=== PATIENT | male | born 1960 | race Caucasian/White ===

== ENCOUNTER → 2019-02-20 11:53 | Outpatient (CLI) | payer OTHER, SELFPAY ==
--- NOTE | 2019-02-20 11:56 | DI.RAD.S_ITS ---
PROCEDURE: XR RIBS RT MIN 3V W CXR 1V INDICATIONS: right rib pain TECHNIQUE: 2 views of the inferior right ribs were acquired, along with a single view chest. COMPARISON: None. FINDINGS: Surgical changes and devices: None. Bones and chest wall: There appears to be a subtle fracture involving the lateral aspect of the right 11th rib. No definite additional fractures are appreciated. No suspicious bony lesions. Overlying soft tissues appear unremarkable. Lungs and pleura: Interstitial prominence within the bilateral infrahilar regions are present. No focal consolidation, effusion, or pneumothorax is evident. There is likely scarring within the lung apices. Mediastinum: Mediastinal contours appear normal. Heart size is normal. IMPRESSION: 1. Probable subtle fracture involving the right 11th rib. 2. No pneumothorax. 2. Bibasilar interstitial prominence may represent mild edema. Dictated by: Damir Galan M.D. on 02/20/2019 at 11:19 Approved by: Damir Galan M.D. on 02/20/2019 at 11:21
== END ==
PROVIDERS: Visit Provider Physician Assistant
DX: R07.81 Pleurodynia (principal)
CPT/HCPCS: 71101